=== PATIENT | male | born 1980 | race Caucasian/White ===

== ENCOUNTER 2021-01-10 22:05 | Emergency (ER) | payer SELFPAY ==
[2021-01-10] MEDS ORDERED: MORPHINE 4 MG/ML SYR ONE (23:57)
[2021-01-10] MEDS ORDERED: ONDANSETRON 4 MG (ODT) TAB ONE (23:57)
[2021-01-10] MEDS ORDERED: LIDOCAINE 1% MPF 5 ML VIAL ONE (23:58)
[2021-01-11] MEDS ORDERED: BUPIVACAINE 0.5% PF 10 ML VIAL ONE (00:09)
--- NOTE | 2021-01-11 00:47 | ER ---
Nurse's Notes [facility] Name: Allan Koenig Age: 40 yrs Sex: Male : 1980 Arrival Date: 01/10/2021 Time: 22:08 Bed 20 Private MD: Diagnosis: Scalp Abscess Presentation: 01/10 22:26 Chief complaint: Patient states: Reports he was bitten in the back of the head by ea spiders about a week ago pt reports the area feels tight and it is causing him to have a headache. Coronavirus screen: At this time, the client does not indicate any symptoms associated with coronavirus-19. Ebola Screen: No symptoms or risks identified at this time. Initial Sepsis Screen: Does the patient meet any 2 criteria? No. Patient's initial sepsis screen is negative. Does the patient have a suspected source of infection? No. Patient's initial sepsis screen is negative. Risk Assessment: Do you want to hurt yourself or someone else? Patient reports no desire to harm self or others. Onset of symptoms was January 10, 2021. 22:26 Method Of Arrival: Ambulatory ea 22:26 Acuity: DARREN 4 ea Triage Assessment: 22:32 General: Appears uncomfortable, Behavior is appropriate for age. Pain: Complains of ea pain in scalp. Neuro: No deficits noted. Respiratory: Airway is patent Respiratory effort is even, unlabored, Respiratory pattern is regular, symmetrical. 22:57 Bite description: bite sustained to scalp by animal information: vaccination(s) is ak2 unknown. Historical: - Allergies: 22:32 PENICILLINS; ea 22:32 Codeine; ea - Home Meds: 22:32 None [Active]; ea - PMHx: 22:32 None; ea - PSHx: 22:32 None; ea - Immunization history:: Adult Immunizations up to date. - Social history:: Smoking status: unknown. Screenin:32 Abuse screen: Denies threats or abuse. Nutritional screening: No deficits noted. ea Tuberculosis screening: No symptoms or risk factors identified. Fall Risk None identified. Assessment: 22:57 Derm: Skin Skin is red. ak2 23:01 Reassessment:. General: Appears in no apparent distress. uncomfortable, Behavior is zb appropriate for age. Pain: Complains of pain in scalp Pain currently is 6 out of 10 on a pain scale. Quality of pain is described as tender. Neuro: Level of Consciousness is awake, alert, obeys commands, Oriented to person, place, time, situation. Cardiovascular: Patient's skin is warm and dry. Respiratory: Airway is patent Respiratory effort is even, unlabored, Respiratory pattern is regular, symmetrical. Derm: Skin is intact, Skin is normal. Derm: Rash noted that is red, vesicular, on scalp multiple vesicular area near occipital scalp of head. Musculoskeletal: Range of motion: intact in all extremities, Swelling present in scalp. Vital Signs: 22:26 BP 137 / 98; Pulse 72; Resp 18; Temp 97.8; Pulse Ox 99% on R/A; Weight 81.65 kg; Height ea 6 ft. 1 in. (185.42 cm); 22:26 Body Mass Index 23.75 (81.65 kg, 185.42 cm) ED Course: 22:08 Patient arrived in ED. am4 22:31 Triage completed. ea 22:34 Sam Sheridan PA is PHCP. [facility] 22:34 Dony Man MD is Attending Physician. [facility] 22:54 Priscilla Ahmadi RN is Primary Nurse. zb 22:57 Arm band placed on right wrist. ak2 22:57 No provider procedures requiring assistance completed. ak2 22:58 Patient has correct armband on for positive identification. ak2 01/11 00:36 Assist provider with I \T\ D: of an abscess on Set up I\T\D tray. Performed by Sam DOBBINS Patient tolerated well. 00:45 Oliver Sotomayor MD is Referral Physician. [facility] 00:56 Patient did not have IV access during this emergency room visit. em Administered Medications: 01/10 23:42 Drug: morphine 4 mg {Note: RASS +0.} Route: IM; Site: right deltoid; zb 01/11 00:31 Follow up: Response: No adverse reaction em 01/10 23:42 Drug: Ondansetron 4 mg Route: PO; zb 01/11 00:31 Follow up: Response: No adverse reaction em 00:30 Drug: Lidocaine (1 %) 20 ml {Note: administered by MU Vargas.} Volume: 20 ml; Route: em Infiltration; 00:57 Follow up: Response: No adverse reaction em 00:31 Drug: Marcaine (bupivacaine) (0.5 %) 10 ml {Note: administered by PA. Sam} Volume: 10 em ml; Route: Infiltration; 00:57 Follow up: Response: No adverse reaction em 00:36 Drug: Dilaudid (HYDROmorphone) 1 mg Route: IM; Site: left deltoid; ea 00:55 Follow up: Response: No adverse reaction; Marked relief of symptoms; Pain is decreased em 00:37 CANCELLED (Duplicate Order): Dilaudid (HYDROmorphone) 1 mg IM once; RASS on ADMIN: ea Combtv4, Very Agttd3, Agttd2, Rstlss1, AlertClm0, Drwsy-1, Lt Sdtn-2, Mod Sdtn-3, Dp Sdtn-4, UnArsble-5 00:41 Drug: Bactrim (trimethoprim-sulfamethoxazole) (160 mg-800 mg (DS) 1 tablet Route: PO; ea 00:52 Follow up: Response: No adverse reaction em 00:41 Drug: Doxycycline 100 mg Route: PO; ea 00:53 Follow up: Response: No adverse reaction em Outcome: 00:46 Discharge ordered by . babar 00:55 Discharged to home ambulatory, with family. em 00:55 Condition: stable 00:55 Discharge instructions given to patient, Instructed on discharge instructions, follow up and referral plans. medication usage, wound care, Demonstrated understanding of instructions, follow-up care, medications, wound care, Prescriptions given X 3. 00:57 Patient left the ED. em Signatures: Sam Sheridan PA PA jmm Munoz, Edgar, RN RN em Antunez, Elena, RN RN ea Brown, Zipporah, RN RN zb Martinez, Ashley am4 Harrison Erazo2 Corrections: (The following items were deleted from the chart) 01/10 22:31 22:26 Acuity: DARREN 3 ea ea 23:44 23:42 morphine 4 mg IM in right deltoid aleksey ryder
--- NOTE | 2021-01-11 00:47 | EDPHYS ---
Physician Documentation [facility] Name: Allan Koenig Age: 40 yrs Sex: Male : 1980 Arrival Date: 01/10/2021 Time: 22:08 Bed 20 Private MD: ED Physician Dony Man HPI: 01/10 23:24 This 40 yrs old Male presents to ER via Ambulatory with complaints of Insect jmm Bite. 23:24 the patient presents with a swollen area of the scalp. Onset: The symptoms/episode jmm began/occurred 1 week(s) ago. Possible cause(s): spider bite. Associated signs and symptoms: Pertinent positives: swelling. Modifying factors: the symptoms are alleviated by nothing, the symptoms are aggravated by pressure, touching. This is a 40 year old male with no chronic medical conditions that presents to the ED with complaints of swelling and pain to the back of his head. Denies fever. States he was bitten by spiders a week ago. . Historical: - Allergies: 22:32 PENICILLINS; ea 22:32 Codeine; ea - Home Meds: 22:32 None [Active]; ea - PMHx: 22:32 None; ea - PSHx: 22:32 None; ea - Immunization history:: Adult Immunizations up to date. - Social history:: Smoking status: unknown. ROS: 23:24 Constitutional: Negative for fever, chills, and weight loss, Cardiovascular: Negative jmm for chest pain, palpitations, and edema, Respiratory: Negative for shortness of breath, cough, wheezing, and pleuritic chest pain. 23:24 Skin: Positive for erythema. 23:24 All other systems are negative. Exam: 23:24 Constitutional: This is a well developed, well nourished patient who is awake, alert, jmm and in no acute distress. 23:24 Eyes: EOMI, no conjunctival erythema appreciated ENT: Moist Mucus Membranes Neck: Trachea midline, Supple Chest/axilla: Normal chest wall appearance and motion. Cardiovascular: Regular rate and rhythm. No edema appreciated Respiratory: Normal respirations, no respiratory distress appreciated Abdomen/GI: Non distended, soft Back: Normal ROM Skin: General appearance color normal MS/ Extremity: Moves all extremities, no obvious deformities appreciated, no edema noted to the lower extremities Neuro: Awake and alert, normal gait Psych: Behavior is normal, Mood is normal, Patient is cooperative and pleasant 23:24 Head/face: multiple pustules noted to the back of the scalp with induration appreciated. Vital Signs: 22:26 BP 137 / 98; Pulse 72; Resp 18; Temp 97.8; Pulse Ox 99% on R/A; Weight 81.65 kg; Height ea 6 ft. 1 in. (185.42 cm); 22:26 Body Mass Index 23.75 (81.65 kg, 185.42 cm) ea Procedures: 01/11 00:44 I \T\ D: Incision and drainage was performed for an abscess of the scalp Prepped with babar Betadine, Anesthetized with 0.5% marcaine. Incised with #11 blade. Drained small amount purulent fluid. bloody fluid. Dressing: sterile 4x4 gauze, the patient tolerated the procedure well. MDM: 01/10 23:24 Patient medically screened. [facility] 01/11 00:44 Data reviewed: vital signs, nurses notes. Counseling: I had a detailed discussion with babar the patient and/or guardian regarding: the historical points, exam findings, and any diagnostic results supporting the discharge/admit diagnosis, the need for outpatient follow up, to return to the emergency department if symptoms worsen or persist or if there are any questions or concerns that arise at home. ED course: Patient is alert and non toxic in appearance in the ED. Patient is advised to follow up with gen surgery for further evaluation. patient otherwise given strict return precautions. Patient understood and agrees with the plan of care. . Administered Medications: 01/10 23:42 Drug: morphine 4 mg {Note: RASS +0.} Route: IM; Site: right deltoid; zb 01/11 00:31 Follow up: Response: No adverse reaction em 01/10 23:42 Drug: Ondansetron 4 mg Route: PO; zb 01/11 00:31 Follow up: Response: No adverse reaction em 00:30 Drug: Lidocaine (1 %) 20 ml {Note: administered by PA. Sam} Volume: 20 ml; Route: em Infiltration; 00:57 Follow up: Response: No adverse reaction em 00:31 Drug: Marcaine (bupivacaine) (0.5 %) 10 ml {Note: administered by PA. Sam} Volume: 10 em ml; Route: Infiltration; 00:57 Follow up: Response: No adverse reaction em 00:36 Drug: Dilaudid (HYDROmorphone) 1 mg Route: IM; Site: left deltoid; ea 00:55 Follow up: Response: No adverse reaction; Marked relief of symptoms; Pain is decreased em 00:37 CANCELLED (Duplicate Order): Dilaudid (HYDROmorphone) 1 mg IM once; RASS on ADMIN: ea Combtv4, Very Agttd3, Agttd2, Rstlss1, AlertClm0, Drwsy-1, Lt Sdtn-2, Mod Sdtn-3, Dp Sdtn-4, UnArsble-5 00:41 Drug: Bactrim (trimethoprim-sulfamethoxazole) (160 mg-800 mg (DS) 1 tablet Route: PO; ea 00:52 Follow up: Response: No adverse reaction em 00:41 Drug: Doxycycline 100 mg Route: PO; ea 00:53 Follow up: Response: No adverse reaction em Disposition: 04:16 Co-signature as Attending Physician, Dony Man MD. 7 Disposition: 01/11/21 00:46 Discharged to Home. Impression: Scalp Abscess. - Condition is Stable. - Discharge Instructions: Skin Abscess. - Prescriptions for Ultracet 37.5- 325 mg Oral Tablet - take 1 tablet by ORAL route every 6 hours - for up to 5 days; do not exceed 8 tablets per day.; 12 tablet. Doxycycline Hyclate 100 mg Oral Tablet - take 1 tablet by ORAL route every 12 hours; 20 tablet. Bactrim DS 800- 160 mg Oral Tablet - take 1 tablet by ORAL route every 12 hours for 10 days; 20 tablet. - Medication Reconciliation Form, Thank You Letter, Antibiotic Education, Prescription Opioid Use form. - Follow up: Oliver Sotomayor MD; When: 2 - 3 days; Reason: Recheck today's complaints, Continuance of care, Re-evaluation by your physician. Signatures: Sam Sheridan PA PA jmm Munoz, Edgar, RN RN em Holli Louie RN RN ea Holmes, Maurice, MD MD [facility] Priscilla Ahmadi RN RN zb Corrections: (The following items were deleted from the chart) 00:37 00:36 Dilaudid (HYDROmorphone) 1 mg IM once; RASS on ADMIN: Combtv4, Very Agttd3, ea Agttd2, Rstlss1, AlertClm0, Drwsy-1, Lt Sdtn-2, Mod Sdtn-3, Dp Sdtn-4, UnArsble-5 ordered. babar 00:57 00:46 01/11/2021 00:46 Discharged to Home. Impression: Scalp Abscess. Condition is em Stable. Forms are Medication Reconciliation Form, Thank You Letter, Antibiotic Education, Prescription Opioid Use. Follow up: Oliver Sotomayor; When: 2 - 3 days; Reason: Recheck today's complaints, Continuance of care, Re-evaluation by your physician. babar
[2021-01-11] MEDS ORDERED: HYDROMORPHONE HCL 1 MG/ML INJ ONE (00:53)
[2021-01-11] MEDS ORDERED: DOXYCYCLINE 100 MG CAP PO ONE (01:00)
[2021-01-11] MEDS ORDERED: SMZ./TMP. 800/160 MG TABLET ONE (01:00)
[2021-01-11 01:31] VITALS: BP 137/98; TEMP 97.8; O2SAT 99
== END 2021-01-11 00:57 | disposition home or self-care (01) ==
LOC: ER 22:05
PROC: 0H90XZZ Drainage of Scalp Skin, External Approach (ICD-10-PCS; principal; 2021-01-10)
DX: S00.06XA Insect bite (nonvenomous) of scalp, initial encounter (principal); W57.XXXA Bitten or stung by nonvenomous insect and other nonvenomous arthropods, initial encounter; L02.811 Cutaneous abscess of head [any part, except face]
CPT/HCPCS: 96372; 99283; J1170